=== PATIENT | female | born 1935 | race Two or more races ===

== ENCOUNTER 2024-06-13 11:35 | Emergency (ER) | payer OTHER ==
[~2024-06-13] VITALS: Ht 162.6 cm; Wt 72.6 kg
[2024-06-13] MEDS ORDERED: COZAAR50 MG (11:44)
[2024-06-13] MEDS ORDERED: SIMVASTATIN40 MG PO (11:44)
[2024-06-13] MEDS ORDERED: LEVOTHYROXINE88 MCG PO (11:44)
[2024-06-13] MEDS ORDERED: GLUMETZA500 MG (11:45)
[2024-06-13 11:46] VITALS: BP 130/60; O2SAT 99
[2024-06-13] MEDS ORDERED: 0.9 % SODIUM CHLORIDE 1,000 ML IV SCH (12:00)
[2024-06-13 12:32] LABS: HEMATOCRIT 31.8 % (36.0-45.00); MEAN CELL VOLUME 88.4 fL (80.00-100.00); MEAN CORPUSCULAR HEMOGLOBIN 30.7 pg (27.00-32.0); MEAN CORPUSCULAR HGB CONC 34.7 g/dl (32.0-36.0); PLATELET COUNT 318 K/uL (150-450); RED CELL DISTRIBUTION WIDTH 13.7 % (11.5-14.5)
[2024-06-13 12:53] LABS: CALCIUM 9.8 mg/dL (8.5-10.1); CREATININE SERUM 1.22 mg/dL (0.55-1.02); GFR 41.69; POTASSIUM 4.27 mEq/L (3.5-5.1)
[2024-06-13 13:47] LABS: PH,URINE 5.5 (5.0-8.0); URINE APPEARANCE Clear; URINE BILIRRUBIN Negative (NEGATIVE); URINE BLOOD Negative; URINE COLOR Yellow; URINE GLUCOSE Negative (NEGATIVE); URINE KETONE Negative (NEGATIVE); URINE LEUKOCYTE Negative; URINE NITRATE Negative; URINE PROTEIN Negative (NEGATIVE); URINE UROBILINOGEN 0.2 E.U./dl
[2024-06-13 13:50] LABS: URINE BACTERIA 114.9 uL (0.0-1933); URINE EPITHELIAL CELLS 6.6 uL (0.0-38.8); URINE RBC 2.2 uL (0.0-20.8)
[2024-06-13 13:51] LABS: URINE CAST 1.03 uL (0.0-1.40)
[2024-06-13] MEDS ORDERED: DICYCLOMINE HCL 20 MG TABLET PO ONE (20:45)
[2024-06-13] MEDS ORDERED: KETOROLAC TROMETHAMINE 30 MG VIAL IM ONE (20:45)
[2024-06-13] MEDS ORDERED: PEPCID AC20 MG PO (22:44)
[2024-06-13] MEDS ORDERED: DICY20TA PO (22:44)
== END 2024-06-13 23:44 | disposition home or self-care (01) ==
LOC: ER 11:35
PROVIDERS: Emergency Medicine
DX: R10.9 Unspecified abdominal pain (principal); E11.9 Type 2 diabetes mellitus without complications; I10 Essential (primary) hypertension; E03.8 Other specified hypothyroidism; Z79.84 Long term (current) use of oral hypoglycemic drugs; K29.70 Gastritis, unspecified, without bleeding
CPT/HCPCS: 36415; 74177; 96365; 96366; 96372; 99284; J1885; J7030; Q9965

== ENCOUNTER → 2024-06-14 | Emergency (ER) | payer OTHER ==
[~2024-06-14] VITALS: Ht 170.2 cm; Wt 68.0 kg
[~2024-06-14] MED LIST: 0.9 % SODIUM CHLORIDE 1,000 ML IV ONE; ASPIRIN 81 MG TABLET.EC PO ONE; COZAAR50 MG; DICY20TA PO; FAMOTIDINE/PF 20 MG/2 ML VIAL ONE; FAMOtidine 10 MG/ML (4ML VIAL) IV ONE; FAMOtidine 10 MG/ML (4ML VIAL) IV PUSH STA; GLUMETZA500 MG; HYOSCYAMINE SULFATE 0.125 MG TAB.SUBL ONE; HYOSCYAMINE SULFATE 0.125 MG TAB.SUBL SL ONE; KETOROLAC TROMETHAMINE 30 MG VIAL IV STA; KETOROLAC TROMETHAMINE 60 MG VIAL IM ONE; LABETALOL HCL 100 MG/20 ML ML ONE; LABETALOL HCL 200 MG/40 ML VIAL IV ONE; LEVOTHYROXINE88 MCG PO; PEPCID AC20 MG PO; SIMVASTATIN40 MG PO
[2024-06-15 00:16] LABS: HEMATOCRIT 32.9 % (36.0-45.00); HEMOGLOBIN 11.2 g/dL (12.0-15.00); MEAN CELL VOLUME 89.6 fL (80.00-100.00); MEAN CORPUSCULAR HEMOGLOBIN 30.5 pg (27.00-32.0); PLATELET COUNT 343 K/uL (150-450); RED BLOOD COUNT 3.67 M/uL (4.00-6.00); RED CELL DISTRIBUTION WIDTH 13.5 % (11.5-14.5)
[2024-06-15 00:36] LABS: ALBUMIN 3.5 gm/dL (3.4-5.0); BILIRUBIN TOTAL 0.89 mg/dL (0.3-1.2); CALCIUM 9.5 mg/dL (8.5-10.1); CREATININE SERUM 1.02 mg/dL (0.55-1.02); GFR 51.26; GLOBULINA 3.1 G/DL (2.4-3.5); POTASSIUM 4.8 mEq/L (3.5-5.1); TOTAL PROTEIN 6.6 gm/dL (6.4-8.2)
[2024-06-15 01:09] LABS: PH,URINE 7.5 (5.0-8.0); URINE APPEARANCE Clear; URINE BILIRRUBIN Negative (NEGATIVE); URINE BLOOD Negative; URINE COLOR Yellow; URINE GLUCOSE Negative (NEGATIVE); URINE KETONE Negative (NEGATIVE); URINE LEUKOCYTE Trace; URINE NITRATE Negative; URINE PROTEIN Negative (NEGATIVE); URINE UROBILINOGEN 0.2 E.U./dl
[2024-06-15 01:13] LABS: URINE BACTERIA 565.3 uL (0.0-1933); URINE CAST 0.29 uL (0.0-1.40); URINE RBC 3.2 uL (0.0-20.8); URINE WBC 36.6 uL (0.0-23.2)
== END | disposition home or self-care (01) ==
LOC: ER 22:03
PROVIDERS: General Practice
DX: K21.9 Gastro-esophageal reflux disease without esophagitis (principal); E78.00 Pure hypercholesterolemia, unspecified; I10 Essential (primary) hypertension; E11.9 Type 2 diabetes mellitus without complications; Z79.84 Long term (current) use of oral hypoglycemic drugs; K29.70 Gastritis, unspecified, without bleeding
CPT/HCPCS: 36415; 71045; 93005; 96365; 99283; J1885; J3490; J7030

== ENCOUNTER 2024-06-17 14:27 | Emergency (ER) | payer OTHER ==
[~2024-06-17] VITALS: Ht 165.1 cm; Wt 69.4 kg
[~2024-06-17 14:27] MED LIST changes: -0.9 % SODIUM CHLORIDE 1,000 ML IV ONE; -ASPIRIN 81 MG TABLET.EC PO ONE; -FAMOTIDINE/PF 20 MG/2 ML VIAL ONE; -FAMOtidine 10 MG/ML (4ML VIAL) IV ONE; -FAMOtidine 10 MG/ML (4ML VIAL) IV PUSH STA; -HYOSCYAMINE SULFATE 0.125 MG TAB.SUBL ONE; -HYOSCYAMINE SULFATE 0.125 MG TAB.SUBL SL ONE; -KETOROLAC TROMETHAMINE 30 MG VIAL IV STA; -KETOROLAC TROMETHAMINE 60 MG VIAL IM ONE; -LABETALOL HCL 100 MG/20 ML ML ONE; -LABETALOL HCL 200 MG/40 ML VIAL IV ONE
[2024-06-17 16:09] LABS: HEMATOCRIT 29.8 % (36.0-45.00); MEAN CORPUSCULAR HEMOGLOBIN 30.2 pg (27.00-32.0); MEAN CORPUSCULAR HGB CONC 33.6 g/dl (32.0-36.0); PLATELET COUNT 263 K/uL (150-450); RED BLOOD COUNT 3.31 M/uL (4.00-6.00); RED CELL DISTRIBUTION WIDTH 13.3 % (11.5-14.5)
[2024-06-17 16:40] LABS: CALCIUM 9.1 mg/dL (8.5-10.1); CREATININE SERUM 1.66 mg/dL (0.55-1.02); GFR 29.22; POTASSIUM 4.33 mEq/L (3.5-5.1)
== END 2024-06-17 19:27 | disposition home or self-care (01) ==
LOC: ER 14:27
PROVIDERS: Emergency Medicine
DX: R42 Dizziness and giddiness (principal); R10.9 Unspecified abdominal pain